=== PATIENT | female | born 1970 | race Caucasian/White ===

== ENCOUNTER 2018-12-19 10:50 | Inpatient (IN) | payer OTHER ==
[~2018-12-19] VITALS: Ht 157.5 cm; Wt 100.7 kg
--- NOTE | ~2018-12-19 | CON ---
[address] [address] CONSULTATION Name: WILNER MARROQUIN Room: [address] IN M.R.#: [id number] Admission: 12/19/18 Attend Phys: Luis Funez Discharge: Date of : 66 Report #: [id number] THIS REPORT FOR: //name// CC: Roseanna Rhodes DO Konstantin Barr DO DATE OF SERVICE: 12/20/2018 REQUESTING PHYSICIAN: Dr. Konstantin Barr. REASON FOR CONSULT: Abdominal distention, pain and new onset ascites. HISTORY OF PRESENT ILLNESS: This is a 48-year-old female with history of alcoholism who reports that at least for the past year or so, she has been drinking 4-6 alcoholic beverages per night. She reports that she usually has difficulty sleeping and alcohol helps her to fall asleep. She denies ever being told that she has liver disease. Upon presentation, she had an abdominal ultrasound, which showed that she has moderate ascites. Since then, she has gone to paracenteses with removal of 3 liters of fluid which has been sent for analysis. The result of these are pending. PAST MEDICAL HISTORY: Significant for history of gallbladder disease, status post cholecystectomy, x 2 with tubal ligation, history of left ankle and right lower leg ORIF, insomnia, and asthma. ALLERGIES: No known drug allergy. MEDICATIONS: Include ALBUTEROL, IBUPROFEN, and ZIPRASIDONE. SOCIAL HISTORY: The patient lives alone. Admits to using marijuana and used to smoke, but reports that she quit. She has long history of alcohol use. FAMILY HISTORY: Noncontributory. PHYSICAL EXAMINATION: VITAL SIGNS: Reveals blood pressure of 110/72, respirations 20, pulse 66, temperature 98.4. LUNGS: Clear. CARDIOVASCULAR: Regular. ABDOMEN: Large, some fluid shift suggestive of ascites. Bowel sounds are hypoactive, but present. NEUROLOGIC: The patient is alert, oriented x 3. LABORATORY DATA: Reveal sodium of 140, potassium 2.0, BUN is 4, creatinine 0.7, [place] [address] CONSULTATION Name: WILNER MARROQUIN Room: [address] IN [facility]#: [id number] Admission: 12/19/18 Attend Phys: Luis Funez Discharge: Date of : 66 Report #: [id number] glucose 102. AST is 44, ALT 17, alkaline phosphatase is 208 with total bili of 0.9, calcium is 7.5. INR 1.1. WBC is 10.5 with hemoglobin of 11.7 and platelet of 13.7. IMAGING: CT of abdomen and pelvis was obtained on admission. There is moderate size ascites throughout the abdomen and pelvis. There is evidence of hepatomegaly with liver measuring 21 cm. There is also mild wall thickening of the ascending colon and trace bilateral pleural effusion with mild bibasilar atelectasis. ASSESSMENT AND PLAN: The patient with new onset ascites and long history of alcohol use. We will consider checking her ammonia level and viral hepatitis serology to assure that her liver disease is purely alcohol and she does not have any other etiologies of her liver disease. We will follow up with the ascitic fluid analysis. We strongly recommend the patient to remain abstinent from alcohol. She also is severely hypokalemic, which should be replaced. She is also high risk for alcohol withdrawal so she should be monitored closely. By: 1001 [id number] Krishnan MD /nt
[~2018-12-19 10:50] MED LIST: CLONAZEPAM; GEODON20 MG PO; NORCO 5-325 TA1 EACH PO; QVAR HFA 880 MCG/UN1 INH; VENTOLIN HFA INH8 GM IH
[2018-12-19 10:56] VITALS: BP 135/86
[2018-12-19] MEDS ORDERED: IBUPROFEN 800800 M1 PO (11:01)
[2018-12-19] MEDS ORDERED: GEODON40 MG PO (11:01)
--- NOTE | 2018-12-19 11:05 | NUR ---
PT BROUGHT BACK TO ER ROOM FROM [facility] AT 1052, STEADY GAIT. PT CHANGED INTO GOWN. EKG PERFORMED BY TIANA KRUSE. TELEMETRY, BP CUFF, AND PULSE OX APPLIED TO PT. PT MADE AWARE OF WAIT FOR STATED UNDERSTANDING. DENIES OTHER NEEDS.
[2018-12-19 11:36] LABS: ABSOLUTE BASOPHILS 0.1 thou/uL (0.0-0.2); ABSOLUTE EOSINOPHILS 0.1 thou/uL (0.0-0.7); ABSOLUTE LYMPHOCYTES 2.5 thou/uL (0.8-5.3); ABSOLUTE MONOCYTES 0.8 thou/uL (0.0-1.2); ABSOLUTE NEUTROPHILS 12.6 thou/uL (1.6-8.1); BASOPHILS 0.8 %; EOSINOPHILS 0.6 %; HEMATOCRIT 38.6 % (37.0-47.0); HEMOGLOBIN 13.4 gm/dL (12.0-15.0); LYMPHOCYTES 15.4 %; MCH 32.2 pg (26.0-34.0); MCHC 34.7 g/dL (28.0-37.0); MCV 92.8 fL (80.0-100.0); MONOCYTES 5.1 %; MPV 8.8 fl. (7.2-11.1); NUCLEATED RBCS 0 /100WBC; PLATELET COUNT* 407 thou/uL (150-400); POLYS 78.1 %; RBC 4.16 mil/uL (4.20-5.00); RDW-CV 13.3 % (10.5-14.5); WBC 16.2 thou/uL (4.0-11.0)
[2018-12-19 11:44] LABS: ALBUMIN 2.1 g/dL (3.4-5.0); CALCIUM 8.5 mg/dL (8.5-10.1); CREATININE 0.8 mg/dL (0.6-1.3); TOTAL BILIRUBIN 1.2 mg/dL (<0.1-1.0); TOTAL PROTEIN 6.8 g/dL (6.4-8.2)
[2018-12-19 11:47] LABS: POTASSIUM 2.4 mmol/L (3.5-5.1)
[2018-12-19 12:43] LABS: URINE BILIRUBIN NEGATIVE (Negative); URINE BLOOD NEGATIVE (Negative); URINE CLARITY CLEAR; URINE COLOR YELLOW; URINE GLUCOSE-RANDOM NEGATIVE (Negative); URINE KETONES NEGATIVE (Negative); URINE LEUKOCYTES-REFLEX NEGATIVE (Negative); URINE NITRITE-REFLEX NEGATIVE (Negative); URINE PROTEIN NEGATIVE (Negative); URINE SPECIFIC GRAVITY <= 1.005 (1.005-1.030); URINE UROBILINOGEN 0.2 E.U./dl (0.2-1.0)
[2018-12-19 12:51] LABS: AMP/METHAMP POSITIVE (Negative); BARBITURATES Negative (Negative); BENZODIAZEPINES Negative (Negative); COCAINE Negative (Negative); METHADONE Negative (Negative); OPIATES Negative (Negative); PCP Negative (Negative); THC Negative (Negative)
[2018-12-19 14:23] LABS: APTT 28.3 Seconds (25.0-31.3); INR 1.1; PROTIME 11.3 Seconds (9.20-11.50)
[2018-12-19 14:46] VITALS: BP 133/61
--- NOTE | 2018-12-19 14:58 | EKG ---
[place] [address] ELECTROCARDIOGRAM REPORT Name: CARAWILNERRian BIANCHI Room: [place] [address] ADM IN .R.#: [id number] Admission: 12/19/18 Attend Phys: Luis Funez Discharge: Date of : 66 Report #: [id number] THIS REPORT FOR: //name// [facility] ED Test Date: 2018-12-19 Test Time: 11:02:45 Pat Name: WILNER MARROQUIN Department: Room: [facility] Gender: F Medical Surgical Tech: Pooja : 1970 Requested By: Fern Mcpherson Order Number: [id number] Jose MD: Aristides Núñez Measurements Intervals [place] Rate: 100 P: -10 CA: 165 QRS: 6 QRSD: 99 T: 240 QT: 385 QTc: 497 Interpretive Statements Sinus tachycardia Borderline repolarization abnormality Borderline prolonged QT interval Baseline wander in lead(s) V1 Electronically Signed On 12-19-2018 14:58:26 CDT by Aristides Núñez [email or web address] <ELECTRONICALLY SIGNED> By: Aristides Núñez MD, [facility] 12/19/18 1458 01 01 Aristides Núñez MD, FACC /EPI
--- NOTE | 2018-12-19 14:58 | EKG ---
[place] [address] ELECTROCARDIOGRAM REPORT Name: CARAWILNER ARIAS Room: [place] [address] ADM IN .R.#: [id number] Admission: 12/19/18 Attend Phys: Luis Funez Discharge: Date of : 66 Report #: [id number] THIS REPORT FOR: //name// [facility] ED Test Date: 2018-12-19 Test Time: 10:56:12 Pat Name: WILNER MARROQUIN Department: Room: [facility] Gender: F Social Scientist: Pooja : 1970 Requested By: Fern Mcpherson Order Number: [id number] Jose MD: Aristides Núñez Measurements Intervals [place] Rate: 102 P: GA: QRS: 11 QRSD: 96 T: 225 QT: 275 QTc: 359 Interpretive Statements sinus tachycardia Borderline repolarization abnormality Compared to ECG 12/01/2012 07:49:47 Sinus rhythm no longer present Ventricular premature complex(es) no longer present Electronically Signed On 12-19-2018 14:57:56 CDT by Aristides Núñez [email or web address] <ELECTRONICALLY SIGNED> By: Aristides Núñez MD, [facility] 12/19/18 1457 1056 1056 Aristides Núñez MD, [facility] /EPI
[2018-12-19 16:00] VITALS: BP 126/55
--- NOTE | 2018-12-19 16:45 | NUR ---
RECEIVED REPORT FROM ER AND ASSUMED CARE OF PT AT 1500.PT IS ADMITTED FOR ABD DISTENTION,CHEST PAIN/SOA.PT IS A/OX4.TRACING SR ON THE MONITOR.IV PATENT ON RH WITH NS INFUSING AT 100ML/HR.ON RA.UP AD HERMAN.COMPLAINTS OF PAIN ON ABD.NPO FOR GI CONS AND DIAGNOSIS PURPOSE.ID AND GI ON BOARD.VSS.ASSESSMENT COMPLETED.NO EDEMA.ECZEMA DERMATITIES ON SKIN.DISTENDED ABD.NO WOUNDS.CT OF ABD COMPLETED.CALL LIGHT AND FALL PRECAUTIONS IN PLACE .WILL CONTINUE TO MONITOR.
--- NOTE | 2018-12-19 18:02 | NUR ---
I have reviewed the documentation by TIANA SANCHEZ from 1499 to 1801 and I concur with it.
[2018-12-19 18:07] LABS: BF RBC <1000 /mm3; TOTAL CELL COUNT 383 /mm3
[2018-12-19 18:08] LABS: CLARITY CLEAR; TOTAL VOLUME 2950 ml
[2018-12-19 19:32] LABS: BF LYMPHOCYTES 33 %; BF MONOCYTES 7 %; BF POLYS 60 %; BF TISSUE 5 /100 WBC; SOURCE PARACENTESIS
[2018-12-19 20:00] VITALS: BP 115/60
[2018-12-20] VITALS (7 sets, daily range): BP systolic 91–123; BP diastolic 43–72
[2018-12-20 05:23] LABS: ABSOLUTE BASOPHILS 0.1 thou/uL (0.0-0.2); ABSOLUTE EOSINOPHILS 0.2 thou/uL (0.0-0.7); ABSOLUTE LYMPHOCYTES 1.3 thou/uL (0.8-5.3); ABSOLUTE MONOCYTES 0.7 thou/uL (0.0-1.2); ABSOLUTE NEUTROPHILS 8.2 thou/uL (1.6-8.1); BASOPHILS 1.2 %; EOSINOPHILS 1.6 %; HEMATOCRIT 33.9 % (37.0-47.0); HEMOGLOBIN 11.7 gm/dL (12.0-15.0); LYMPHOCYTES 12.6 %; MCH 32.4 pg (26.0-34.0); MCHC 34.5 g/dL (28.0-37.0); MCV 93.8 fL (80.0-100.0); MONOCYTES 6.3 %; MPV 8.6 fl. (7.2-11.1); NUCLEATED RBCS 0 /100WBC; POLYS 78.3 %; RBC 3.62 mil/uL (4.20-5.00); RDW-CV 13.7 % (10.5-14.5); WBC 10.5 thou/uL (4.0-11.0)
[2018-12-20 05:27] LABS: PLATELET COUNT* 294 thou/uL (150-400)
[2018-12-20 05:31] LABS: PREALBUMIN 9.8 mg/dL (18.0-35.7)
[2018-12-20 05:47] LABS: ALBUMIN 1.7 g/dL (3.4-5.0); CALCIUM 7.5 mg/dL (8.5-10.1); CREATININE 0.7 mg/dL (0.6-1.3); TOTAL BILIRUBIN 0.9 mg/dL (<0.1-1.0); TOTAL PROTEIN 5.5 g/dL (6.4-8.2)
--- NOTE | 2018-12-20 06:58 | NUR ---
VITALS WNL. SEE MAR. SEE CHARTING. HOURLY ROUNDING FOR SAFETY.
[2018-12-20 07:36] LABS: HEPATITIS B SURFACE AG Negative (Negative)
[2018-12-20 16:36] LABS: CALCIUM 7.7 mg/dL (8.5-10.1); CREATININE 0.8 mg/dL (0.6-1.3); MAGNESIUM 2.1 mg/dL (1.8-2.4)
--- NOTE | 2018-12-20 16:38 | NUR ---
PATIENT ALERT AND ORIENTED X 4, UP AD HERMAN. CONT. TO REQUIRE IV MSO4 FOR ABD PAIN. AWAITING RESULTS OF BMP AND POTASSIUM. NO FURTHER COMPLAINTS.
[2018-12-20 16:40] LABS: POTASSIUM 2.8 mmol/L (3.5-5.1)
[2018-12-21 04:00] VITALS: BP 123/57
[2018-12-21 05:10] LABS: ABSOLUTE BASOPHILS 0.1 thou/uL (0.0-0.2); ABSOLUTE EOSINOPHILS 0.2 thou/uL (0.0-0.7); ABSOLUTE LYMPHOCYTES 1.4 thou/uL (0.8-5.3); ABSOLUTE MONOCYTES 0.8 thou/uL (0.0-1.2); ABSOLUTE NEUTROPHILS 9.2 thou/uL (1.6-8.1); BASOPHILS 0.8 %; HEMATOCRIT 35.8 % (37.0-47.0); HEMOGLOBIN 11.9 gm/dL (12.0-15.0); LYMPHOCYTES 11.7 %; MCH 31.5 pg (26.0-34.0); MCHC 33.2 g/dL (28.0-37.0); MCV 94.9 fL (80.0-100.0); MONOCYTES 6.5 %; MPV 8.7 fl. (7.2-11.1); NUCLEATED RBCS 0 /100WBC; PLATELET COUNT* 321 thou/uL (150-400); RBC 3.77 mil/uL (4.20-5.00); RDW-CV 13.7 % (10.5-14.5); WBC 11.7 thou/uL (4.0-11.0)
[2018-12-21 05:58] LABS: ALBUMIN 1.7 g/dL (3.4-5.0); CALCIUM 7.5 mg/dL (8.5-10.1); CREATININE 0.7 mg/dL (0.6-1.3); POTASSIUM 3.4 mmol/L (3.5-5.1); TOTAL BILIRUBIN 0.7 mg/dL (<0.1-1.0); TOTAL PROTEIN 5.7 g/dL (6.4-8.2)
[2018-12-21 10:05] LABS: BODY FLUID AMYLASE 14 U/L (()); BODY FLUID LDH 47 IU/L (()); BODY FLUID PROTEIN 1.8 g/dL (())
[2018-12-21 12:00] VITALS: BP 108/58
[2018-12-21 15:13] VITALS: BP 127/44
[2018-12-21 16:00] VITALS: BP 118/40
--- NOTE | 2018-12-21 17:27 | CON ---
[facility] [address] [place] [address] CONSULTATION Name: WILNER MARROQUIN Room: [address] IN M.R.#: [id number] Admission: 12/19/18 Attend Phys: Luis Funez Discharge: Date of : 66 Report #: [id number] THIS REPORT FOR: //name// CC: Roseanna Barr DATE OF SERVICE: 12/20/2018 TYPE OF REPORT: Infectious diseases consultation. REASON FOR CONSULTATION: I was asked to evaluate for peritonitis. HISTORY OF PRESENT ILLNESS: The patient is a 48-year old who presents with a 1-week history of increased abdominal pain associated with distention. Describes this as more sharp to burning discomfort, which has been diffuse. No change in her bowel and bladder habits. She has been also complaining of pruritus. She has multiple excoriations. She drinks significant amount of alcohol. No other travel. No other GI or complaints. She has had intermittent cough with no pleuritic chest pain or sputum production. No adenopathy. No weight loss. No headaches or other neurologic issues. REVIEW OF SYSTEMS: A 10-point review of systems is negative other than what is described above. ALLERGIES: None known. MEDICATIONS: As noted on OCT, now on cefepime. PAST MEDICAL HISTORY: ORIF of her left ankle and right lower leg, x 2 and cholecystectomy. FAMILY HISTORY: Noncontributory. SOCIAL HISTORY: Past smoker. Does recreational drugs. Drinks daily. PHYSICAL EXAMINATION: VITAL SIGNS: She is afebrile and hemodynamically stable. GENERAL: She is alert and cooperative and pleasant and obese. SKIN: With multiple excoriations. No palpable adenopathy. HEENT: Eyes, without scleral icterus. Mouth without mucositis. NECK: Supple, with no thyromegaly or mass. LUNGS: Clear. HEART: Regular, without murmur, gallop or rub. ABDOMEN: Obese. Appeared to have ascites. No hepatosplenomegaly or mass appreciated. She was diffusely tender with no guarding or rebound. EXTREMITIES: Without clubbing, [place] [address] CONSULTATION Name: WILNER MARROQUIN Room: [address] IN [facility]#: [id number] Admission: 12/19/18 Attend Phys: Luis Funez Discharge: Date of : 66 Report #: [id number] GENITORECTAL: Not performed. PSYCHIATRIC: Mood was normal. Affect normal. NEUROLOGICAL: With normal cranial nerves. Strength in her upper and lower extremities was normal as well as sensation to touch. LABORATORY STUDIES: Sodium 139, potassium 2.8, bicarbonate 30 and creatinine 0.8. AST 44, ALT 17, alkaline phosphatase 208 and bilirubin 0.9. Hemoglobin 11; WBC 10 and platelet count was 294,000. On admission, her white count was 16. Drug screen was positive for methamphetamines. Urinalysis was unremarkable. Blood cultures are negative. Peritoneal fluid had 383 nucleated cells, 60% neutrophils. Culture is pending. IMPRESSION: 1. A 48-year old with suspected alcoholic liver disease and ascites. A cutoff value is above 150 neutrophils consistent with spontaneous bacterial peritonitis. I am awaiting culture results. 2. Neurodermatitis skin disorder and suspect related to her liver disease. 3. Obesity. 4. Recreational drug use. 5. Hypokalemia. 6. Bilateral pleural effusions that seen on her CT scan. RECOMMENDATIONS: We will continue with ceftriaxone, pending culture results. Agree with Hepatology evaluation. The patient states she has had serologic studies done as an outpatient. I would suspect alcohol to be the etiology of her liver disease. <ELECTRONICALLY SIGNED> By: Ilan Bae MD 12/21/18 1727 1751 1250Damichelle Bae MD /nt
[2018-12-21 20:00] VITALS: BP 111/60
[2018-12-22] VITALS: BP 109/56; BP 129/71
[2018-12-22 04:00] VITALS: BP 105/58
[2018-12-22 04:36] LABS: CALCIUM 7.1 mg/dL (8.5-10.1); CREATININE 0.6 mg/dL (0.6-1.3)
[2018-12-22 04:41] LABS: POTASSIUM 2.9 mmol/L (3.5-5.1)
--- NOTE | 2018-12-22 06:53 | NUR ---
ASSUMED PT CARE AT 1930. ASSESSMENT COMPLETED CHARTED. ABLE TO MAKE NEEDS KNOWN. C/O ABDOMINAL PAIN AND GAVE PRN PAIN MEDICATION. UP AD HERMAN. PT RESTING IN BED AT THIS TIME. WILL CONTINUE TO MONITOR.
[2018-12-22 12:00] VITALS: BP 108/68
--- NOTE | 2018-12-22 14:46 | NUR ---
MET WITH PT TO DISCUSS HOME SITUATION/DC PLANNING. PT LIVES WITH SPOUSE. SHE IS INDEPENDENT AND ACTIVE. USES NO EQUIPMENT AND HAS SUPPORTIVE FAMILY. PT PLANS TO RETURN HOME AT [place]. ALSO TALKED WITH PT ABOUT HER ETOH USE, SHE ADMITTED TO 4 [facility]/DAY AND STATES THEY HELPED HER 'SLEEP.' SHE DID STATE ETOH HAD BEEN A 'PROBLEM' FOR HER IN THE PAST. DENIES ANY TX AND DECLINED ANY RESOURCES. STATED SHE WANTED TO TRY TO QUIT ON HER OWN. SHE IS AWARE THAT IT IS EFFECTING HER HEALTH. WILL FOLLOW
[2018-12-22 16:00] VITALS: BP 107/60
[2018-12-22 17:10] LABS: BODY FLUID PH 7.7 (Not Estab.)
--- NOTE | 2018-12-22 18:44 | NUR ---
PT A&O X4, UP AD HERMAN, LS CTA, ABD HARD AND DISTENDED FROM ASCITIES, C/O CONSTANT PAIN IN ABD, PRN PAIN MEDS ON BOARD. RESEARCH AND DEVELOPMENT ENGINEER TRACING SINUS RHYTHM, VSS, HOURLY ROUNDING COMPLETED. PT REMAINS ON ELECTROLYTE PROTOCOL FOR HYPOKALEMIA.
[2018-12-22 20:00] VITALS: BP 104/37
[2018-12-23] VITALS: BP 112/70
[2018-12-23 04:00] VITALS: BP 105/64
[2018-12-23 05:34] LABS: ABSOLUTE BASOPHILS 0.2 thou/uL (0.0-0.2); ABSOLUTE EOSINOPHILS 0.2 thou/uL (0.0-0.7); ABSOLUTE LYMPHOCYTES 1.5 thou/uL (0.8-5.3); ABSOLUTE MONOCYTES 0.9 thou/uL (0.0-1.2); ABSOLUTE NEUTROPHILS 10.2 thou/uL (1.6-8.1); BASOPHILS 1.3 %; EOSINOPHILS 1.5 %; HEMATOCRIT 36.8 % (37.0-47.0); HEMOGLOBIN 12.3 gm/dL (12.0-15.0); LYMPHOCYTES 11.9 %; MCH 31.7 pg (26.0-34.0); MCHC 33.5 g/dL (28.0-37.0); MCV 94.6 fL (80.0-100.0); MONOCYTES 6.8 %; MPV 8.8 fl. (7.2-11.1); NUCLEATED RBCS 0 /100WBC; PLATELET COUNT* 343 thou/uL (150-400); POLYS 78.5 %; RBC 3.88 mil/uL (4.20-5.00)
--- NOTE | 2018-12-23 05:56 | NUR ---
ASSUMED PT CARE AT 1930. ASSESSMENT COMPLETED CHARTED. ABLE TO MAKE NEEDS KNOWN. UP AD HERMAN, VSS, REQUESTED PAIN MEDS X1 TODAY, HAS BEEN RESTING IN BED ALL NIGHT, C/O NAUSEA AND PAIN, DIDNT WANT NAUSEA MEDICATION. NO OTHER C/O DISCOMFORT. WILL CONTINUE TO MONITOR.
[2018-12-23 06:24] LABS: CALCIUM 7.5 mg/dL (8.5-10.1); CREATININE 0.7 mg/dL (0.6-1.3); POTASSIUM 3.9 mmol/L (3.5-5.1)
[2018-12-23 08:00] VITALS: BP 129/69
[2018-12-23 08:53] LABS: SOURCE PERITONEAL
[2018-12-23 08:55] LABS: SOURCE ABDOMINAL
--- NOTE | 2018-12-23 10:09 | 2DMMODE ---
[place] [address] 2 D/M-MODE ECHOCARDIOGRAM Name: WILNER MARROQUIN Room: [address] IN [facility]#: [id number] Admission: 12/19/18 Attend Phys: Konstantin Barr Discharge: Date of : 66 Date of Service: 12/22/18 1318 Report #: [id number] THIS REPORT FOR: //name// APPROVED REPORT Study performed: 12/22/2018 10:50:58 EXAM: Comprehensive 2D, Doppler, and color-flow Echocardiogram Patient Location: In-Patient Room #: [facility] BSA: 1.90 HR: 65 bpm BP: 105/58 mmHg Other Information Study Quality: Good Indications Dyspnea 2D Dimensions IVSd: 9.63 (7-11mm) LVOT Diam: 17.64 (18-24mm) LVDd: 45.38 mm PWd: 11.14 (7-11mm) Ascending Ao: 30.18 (22-36mm) LVDs: 29.14 (25-40mm) Aortic Root: 28.40 mm Aortic Valve AoV Peak Jeronimo.: 1.54 m/s AO Peak Gr.: 9.55 mmHg LVOT Max P.98 mmHg AO Mean Gr.: 5.00 mmHg LVOT Mean P.50 mmHg LVOT Max V: 1.22 m/s AO V2 VTI: 25.90 cm LVOT Mean V: 0.71 m/s WALLY (VTI): 1.99 cm2 LVOT V1 VTI: 21.06 cm Mitral Valve E/A Ratio: 0.79 MV Decel. Time: 217.55 ms MV E Max Jeronimo.: 0.65 m/s MV PHT: 63.09 ms MVA (PHT): 3.49 cm2 TDI E/Lateral E': 5.91 E/Medial E': 7.22 [place] [address] 2 D/M-MODE ECHOCARDIOGRAM Name: WILNER MARROQUIN Room: [address] IN [facility].#: [id number] Admission: 12/19/18 Attend Phys: Konstantin Barr Discharge: Date of : 66 Date of Service: 12/22/18 1318 Report #: [id number] Medial E' Jeronimo.: 0.09 m/s Lateral E' Jeronimo.: 0.11 m/s Pulmonary Valve PV Peak Jeronimo.: 1.09 m/s PV Peak Gr.: 4.73 mmHg Tricuspid Valve RAP Estimate: 5.00 mmHg TR Peak Gr.: 25.85 mmHg RVSP: 30.85 mmHg PA Pressure: 30.85 mmHg Left Ventricle The left ventricle is normal size. There is normal LV segmental wall motion. There is normal left ventricular wall thickness. Left ventricular systolic function is normal. The left ventricular ejection fraction is within the normal range. LVEF is 55-60%. The left ventricular diastolic function is normal. Right Ventricle The right ventricle is normal size. The right ventricular systolic function is normal. Atria The left atrium size is normal. The right atrium size is normal. Aortic Valve The aortic valve is normal in structure. No aortic regurgitation is present. There is no aortic valvular stenosis. Mitral Valve The mitral valve is normal in structure. There is no mitral valve regurgitation noted. No evidence of mitral valve stenosis. Tricuspid Valve The tricuspid valve is normal in structure. There is no tricuspid valve regurgitation noted. Pulmonic Valve Pulmonic valve is not well visualized. There is no pulmonic valvular regurgitation. Great Vessels The aortic root is normal in size. IVC is normal in size and collapses >50% [place] [address] 2 D/M-MODE ECHOCARDIOGRAM Name: WILNER MARROQUIN Room: [address] IN [facility]#: [id number] Admission: 12/19/18 Attend Phys: Konstantin Barr Discharge: Date of : 66 Date of Service: 12/22/18 1318 Report #: [id number] Pericardium There is no pericardial effusion. <Conclusion> Left ventricular systolic function is normal. The left ventricular ejection fraction is within the normal range. <ELECTRONICALLY SIGNED> By: Aristides Núñez MD, FACC 12/22/18 1318 1318 1318 Aristides Núñez MD, FAC /INF
[2018-12-23] MEDS ORDERED: LACTULOSE20 GM/30 M PO (12:49)
[2018-12-23] MEDS ORDERED: ALDACTONE100 MG PO ×2 (12:49→14:10)
[2018-12-23] MEDS ORDERED: LASIX 40 MG TAB40 M2 PO (12:49)
[2018-12-23] MEDS ORDERED: AMBIEN 10 MG TA10 MG PO (12:52)
--- NOTE | 2018-12-23 13:07 | PATH ---
[address] [address] PATHOLOGY RPT PROCEDURE Name: WILNER MARROQUIN Room: [address] IN [facility]#: [id number] Admission: 12/19/18 Date of : 66 Discharge: Report #: [id number] Path Case #: [id number] Note [facility] Accession Number: [id number] TESTS RESULT FLAG UNITS REF RANGE LAB Clinician Provided Cytology Information No. of containers..01 Other (Miscellaneous) Source: PERITONEAL FLUID DIAGNOSIS: 02 PERITONEAL FLUID NEGATIVE FOR MALIGNANT CELLS. FEW MESOTHELIAL CELLS AND INFLAMMATORY CELLS, PREDOMINANTLY CHRONIC. THIS INTERPRETATION INCLUDES EVALUATION OF A CELL BLOCK. Signed out by: 02 Brandon Jackson MD, Pathologist NPI- [id number] Performed by: 01 Roseanna Appiah, Training Intern ([facility]) Gross description: 01 30ML, YELLLOW, CLEAR /LCS FLAG LEGEND: L-Low Normal,H-High Normal,LL-Alert Low,HH-Alert High <-Panic Low,>-Panic High,A-Abnormal,AA-Critical Abnormal Performed at: [address] [place] [address] Chandan Clark MD, [address] [phone] Brandon Jackson MD, Specimen Comment: A courtesy copy of this report has been sent to Specimen Comment: [phone]. Specimen Comment: Report sent to Performed at: [address], [place], [place] [address] MD Chandan Clark MD Phone: [phone]
--- NOTE | 2018-12-23 13:33 | NUR ---
Nutrition: Pt assessed for high BMI. Admit wt was 196#, today's wt is 222#. Noted ascites, in chart. RX: lactulose, lasix. Albumin 1.7, prealb 10.4. Severely depleted protein stores, likely in part d/t fluid/ascites. RD will order Beneprotein packets for added protein intake. Regular diet. Pleural effusions, hyopkalemia, h/o ETOH abuse. No other nutrition interventions at this time. Mild to low risk.
[2018-12-23] MEDS ORDERED: CEFDINIR300 MG PO (14:08)
[2018-12-23] MEDS ORDERED: AMBIEN 5 MG TABL5 M1 PO (14:12)
[2018-12-23 14:20] VITALS: BP 129/69
--- NOTE | 2018-12-23 14:53 | NUR ---
A&O X4, PINION POLISHER TRACING SINUS RHYTHM, VSS. LS CTA, ABD DISTENDED AND FIRM, RECVD NEW ORDERS FOR LACTULOSE FOR ASCITIES AND ELEVATED AMMONIA LEVELS. HOURLY ROUNDING COMPLETED. PT DISCHARGED HOME VIA WHEELCHAIR WITH NURSING STAFF AND SPOUSE. IV AND PINION POLISHER REMOVED, EDUCATED ON ALL DISCHARGE INSTRUCTIONS INCLUDING MEDICATIONS AND FOLLOW UP APPTS.
== END 2018-12-23 14:56 | disposition home or self-care (01) | DRG 432 ==
LOC: M.ERS 10:50 → M.TBA-ER 14:07 → M.2W 14:07
PROVIDERS: Personal Emergency Response Attendant; ADMIT Internal Medicine
PROC: 0W9G3ZZ Drainage of Peritoneal Cavity, Percutaneous Approach (ICD-10-PCS; principal; 2018-12-19)
DX: K70.31 Alcoholic cirrhosis of liver with ascites (principal); J69.0 Pneumonitis due to inhalation of food and vomit; K65.2 Spontaneous bacterial peritonitis; J15.6 Pneumonia due to other Gram-negative bacteria; J90 Pleural effusion, not elsewhere classified; Z68.41 Body mass index [BMI] 40.0-44.9, adult; K76.6 Portal hypertension; J45.909 Unspecified asthma, uncomplicated; E87.6 Hypokalemia; K72.90 Hepatic failure, unspecified without coma; L28.0 Lichen simplex chronicus; E88.09 Other disorders of plasma-protein metabolism, not elsewhere classified; E66.9 Obesity, unspecified; Z87.891 Personal history of nicotine dependence; Z98.891 History of uterine scar from previous surgery; Z90.49 Acquired absence of other specified parts of digestive tract; Z79.899 Other long term (current) drug therapy

== ENCOUNTER 2019-06-16 14:17 | Emergency (ER) | payer OTHER ==
[~2019-06-16] VITALS: Ht 157.5 cm; Wt 77.1 kg
[~2019-06-16 14:17] MED LIST changes: +ALDACTONE100 MG PO; +AMBIEN 10 MG TA10 MG PO; +AMBIEN 5 MG TABL5 M1 PO; +CEFDINIR300 MG PO; +GEODON40 MG PO; +IBUPROFEN 800800 M1 PO; +LACTULOSE20 GM/30 M PO; +LASIX 40 MG TAB40 M2 PO
[2019-06-16] MEDS ORDERED: NABUMETONE 750750 M1 PO ×2 (16:44→16:46)
[2019-06-16] MEDS ORDERED: NORCO 5-325 TA1 EAC1 PO (16:44)
[2019-06-16 17:04] VITALS: BP 128/79
== END 2019-06-16 17:05 | disposition home or self-care (01) ==
LOC: M.ERS 14:17
DX: M25.561 Pain in right knee (principal); F17.210 Nicotine dependence, cigarettes, uncomplicated; Z98.890 Other specified postprocedural states; Z90.49 Acquired absence of other specified parts of digestive tract; Z98.51 Tubal ligation status

== ENCOUNTER 2021-03-24 10:05 | Emergency (ER) | payer OTHER ==
[~2021-03-24] VITALS: Ht 160 cm; Wt 81.7 kg
[~2021-03-24 10:05] MED LIST changes: +NABUMETONE 750750 M1 PO; +NORCO 5-325 TA1 EAC1 PO
[2021-03-24] MEDS ORDERED: LEXAPRO 10 MG T10 M1 PO (10:18)
[2021-03-24] MEDS ORDERED: NORCO5 PO (12:14)
[2021-03-24 12:48] VITALS: BP 138/86
== END 2021-03-24 12:49 | disposition home or self-care (01) ==
LOC: M.ERS 10:05
DX: S22.42XA Multiple fractures of ribs, left side, initial encounter for closed fracture (principal); F17.210 Nicotine dependence, cigarettes, uncomplicated; Z90.49 Acquired absence of other specified parts of digestive tract; Z98.890 Other specified postprocedural states; Z98.51 Tubal ligation status; W10.8XXA Fall (on) (from) other stairs and steps, initial encounter; Y93.89 Activity, other specified; Y92.89 Other specified places as the place of occurrence of the external cause; Y99.8 Other external cause status